=== PATIENT | male | born 1995 | race Two or more races ===

== ENCOUNTER 2021-04-07 13:20 | Emergency (ER) | payer OTHER ==
[~2021-04-07] VITALS: Ht 177.8 cm; Wt 85.3 kg
[2021-04-07] MEDS ORDERED: KETO10TA2 PO (16:00)
[2021-04-07] MEDS ORDERED: NORFLEX100MG PO (16:00)
== END 2021-04-07 16:11 | disposition home or self-care (01) ==
LOC: ER 13:20
DX: M54.50 Low back pain, unspecified (principal)

== ENCOUNTER 2021-11-22 20:02 | Emergency (ER) | payer OTHER ==
[~2021-11-22] VITALS: Ht 180.3 cm; Wt 80.7 kg
[~2021-11-22 20:02] MED LIST: KETO10TA2 PO; NORFLEX100MG PO
== END 2021-11-22 22:13 | disposition home or self-care (01) ==
LOC: ER 20:02
DX: R22.31 Localized swelling, mass and lump, right upper limb (principal)